=== PATIENT | male | born 1980 | race Caucasian/White ===

== ENCOUNTER → 2017-01-08 | Outpatient (CLI) | payer BC | LOC: MW.CHFP 10:52 | PROVIDERS: ATTEND Nurse Practitioner Family | DX: M10.9 Gout, unspecified (principal) | CPT/HCPCS: 36415; 84550 ==

== ENCOUNTER 2017-05-29 21:09 | Emergency (ER) | payer BC ==
[2017-05-29] MEDS ORDERED: Sodium Chloride 0.9% 2.5 ML Syringe FLUSH PRN (21:25)
[2017-05-29] MEDS ORDERED: Sodium Chloride 0.9% 10 ML Syringe FLUSH PRN (21:25)
[2017-05-29] MEDS ORDERED: Sodium Chloride 0.9% 1,000 ML IV ONE ×2 (21:25→22:54)
[2017-05-29] MEDS ORDERED: Ketorolac 30 MG/ML SDV IVPUSH ONE (21:25)
[2017-05-29] MEDS ORDERED: Acetaminophen 500 MG Tab PO ONE (21:26)
--- NOTE | 2017-05-29 21:29 | EDM.PDOC ---
ED HPI GENERAL MEDICAL PROBLEM - General Stated Complaint: DIZZY/POSSIBLE VIRUS Time Seen by Provider: 05/29/17 21:18 - History of Present Illness INITIAL COMMENTS - FREE TEXT/NARRATIVE: HISTORY AND PHYSICAL: History of present illness: The patient is a 37-year-old male who presents with a several day history of subjective fevers and chills and watery stools up to 15 times a day after he eats anything. He's been trying to hydrate and keep up that he feels that he is dehydrated. He is dizzy and lightheaded but he has not passed out or blacked out. He has generalized malaise and weakness but no focal weakness in any of his extremities. He has no sore throat runny nose or cough no chest pain or shortness of breath. He has not been vomiting and has no abdominal pain. Patient has not had any recent travel to exotic places and no new foods. Patient denies any GI history and his only abdominal surgery is of gastric bypass. Patient has tried [id number]-fes-[id number] medications for diarrhea 1 time as well as meds for his fever. Again it was a subjective fever. The patient follows in our clinic and has a history of hypertension and hypercholesterolemia. Review of systems: As per history of present illness and below otherwise all systems reviewed and negative. Past medical history: As per history of present illness and as reviewed below otherwise noncontributory. Surgical history: As per history of present illness and as reviewed below otherwise noncontributory. Social history: No reported history of drug or alcohol abuse. Family history: As per history of present illness and as reviewed below otherwise noncontributory. Physical exam: Gen.: Well-developed mildly overweight male who is nontoxic flushed in the face and religion orally is 101.6 HEENT: Atraumatic, normocephalic, pupils reactive, negative for conjunctival pallor or scleral icterus, mucous membranes tacky, throat clear, neck supple, nontender, trachea midline. There is no cervical adenopathy or nuchal rigidity Lungs: Clear to auscultation, breath sounds equal bilaterally, chest nontender. Heart: S1S2, regular rate and rhythm no overt murmurs Abdomen: Soft, nondistended, nontender. Negative for masses or hepatosplenomegaly. Negative for costovertebral tenderness. Pelvis: Stable nontender. Genitourinary: Deferred. Rectal: Deferred. Extremities: Atraumatic, negative for cords or calf pain. Neurovascular unremarkable. Neuro: Awake, alert, oriented. Cranial nerves II through XII grossly unremarkable. Cerebellum grossly unremarkable. Motor and sensory unremarkable throughout. Exam nonfocal. Skin: Warm to touch but no rashes or lesions are seen and turgor is normal Diagnostics: EKG orthostatic vitals CBC CMP lipase lactic acid stool for culture and WBCs Therapeutics: IV fluids Toradol Tylenol Levaquin Please note that the patient's orthostatic vitals were positive as a systolic blood pressure went from 138-105 from supine to standing and his heart rate went from 81-104 supine to standing and he was symptomatic. Patient is aware of all lab testing results and the stool studies which revealed Campylobacter. We will go ahead and treat with Levaquin here and send him home with Levaquin prescription as well as Bentyl. I've advised him on the need to call and follow-up in the clinic before the weekend and reasons to return to the ED. I've advised him to drink electrolyte solutions as well as water and eat a bland diet. He can use [id number] Tylenol and ibuprofen for fevers. Patient was up and ambulated and feels much improved and would like to try to go home. Impression: Bacterial diarrhea, Campylobacter with clinical dehydration and Orthostasis improving Definitive disposition and diagnosis as appropriate pending reevaluation and review of above. - Related Data Allergies Allergy/AdvReac Type Severity Reaction Status Date / Time No Known Allergies Allergy Verified 05/29/17 21:26 Home Meds: Home Meds Sertraline [Zoloft] 100 mg PO DAILY 02/22/14 [History] Lisinopril 40 mg PO DAILY 05/29/17 [History] atorvaSTATin Calcium [Atorvastatin Calcium] 40 mg PO BEDTIME 05/29/17 [History] Social & Family History - Tobacco Use Second Hand Smoke Exposure: Yes - Alcohol Use Days Per Week of Alcohol Use: 0 - Recreational Drug Use Recreational Drug Use: No ED ROS GENERAL - Review of Systems Review Of Systems: ROS reveals no pertinent complaints other than HPI. ED EXAM, GENERAL - Physical Exam Exam: See Below (See dictation) Course - Vital Signs Last Recorded V/S: Last Vital Signs Temp 38.3 C H 05/29/17 23:15 Pulse 72 05/29/17 23:15 Resp 18 05/29/17 23:15 BP 134/64 05/29/17 23:15 Pulse Ox 95 05/29/17 23:15 Orthostatic Blood Pressure [ 105/53 Standing] Orthostatic Blood Pressure [ 129/61 Sitting] Orthostatic Blood Pressure [ 138/68 Supine] - Orders/Labs/Meds Orders: Active Orders 24 hr Category Date Time Status Cardiac Monitoring [RC] . DIRECTED Care 05/29/17 21:25 Active EKG Documentation Completion [RC] STAT Care 05/29/17 21:19 Active Orthostatic Vital Signs [RC] ASDIRECTED Care 05/29/17 21:18 Active Pulse Oximetry [RC] ASDIRECTED Care 05/29/17 21:25 Active CULTURE STOOL + CAMPY+SHIGATOX [] Stat Lab 05/29/17 22:35 Results Levofloxacin/Dextrose 5%-Water [Levaquin in D5W 500 MG/ Med 05/29/17 23:56 Ordered 100 ML] 500 mg Premix Bag 1 bag IV ONETIME Sodium Chloride 0.9% [Saline Flush] Med 05/29/17 21:25 Active 10 ml FLUSH ASDIRECTED PRN Sodium Chloride 0.9% [Saline Flush] Med 05/29/17 21:25 Active 2.5 ml FLUSH ASDIRECTED PRN Saline Lock Insert [OM.PC] Stat Oth 05/29/17 21:25 Ordered Medication Orders Levofloxacin/Dextrose 500 mg/ (Premix) 100 mls @ 100 mls/hr IV ONETIME ONE Stop: 05/30/17 00:55 Sodium Chloride (Saline Flush) 10 ml FLUSH ASDIRECTED PRN PRN Reason: Keep Vein Open Last Admin: 05/29/17 21:50 Dose: 10 ml Sodium Chloride (Saline Flush) 2.5 ml FLUSH ASDIRECTED PRN PRN Reason: Keep Vein Open Last Admin: 05/29/17 21:52 Dose: 2.5 ml Labs: Laboratory Tests 05/29/17 05/29/17 05/29/17 Range/Units 21:50 21:50 21:50 WBC 8.00 (4.0-11.0) K/uL RBC 5.19 (4.50-5.90) M/uL Hgb 14.8 (13.0-17.0) g/dL Hct 43.2 (38.0-50.0) % MCV 83.2 (80.0-98.0) fL MCH 28.5 (27.0-32.0) pg MCHC 34.3 (31.0-37.0) g/dL RDW Std Deviation 40.0 (28.0-62.0) fl RDW Coeff of Teresa 13 (11.0-15.0) % Plt Count 150 (150-400) K/uL MPV 9.70 (7.40-12.00) fL Neut % (Auto) 78.1 (48.0-80.0) % Lymph % (Auto) 13.5 L (16.0-40.0) % Wilkinson % (Auto) 8.1 (0.0-15.0) % Eos % (Auto) 0.0 (0.0-7.0) % Baso % (Auto) 0.3 (0.0-1.5) % Neut # (Auto) 6.3 H (1.4-5.7) K/uL Lymph # (Auto) 1.1 (0.6-2.4) K/uL Wilkinson # (Auto) 0.7 (0.0-0.8) K/uL Eos # (Auto) 0.0 (0.0-0.7) K/uL Baso # (Auto) 0.0 (0.0-0.1) K/uL Nucleated RBC % 0.0 /100WBC Nucleated RBCs # 0 K/uL Lactate 1.2 (0.20-2.00) mmol/L Sodium 136 (136-146) mmol/L Potassium 3.2 L (3.5-5.1) mmol/L Chloride 101 (98-110) mmol/L Carbon Dioxide 23 (21-31) mmol/L BUN 13 (6.0-23.0) mg/dL Creatinine 1.1 (0.6-1.5) mg/dL Est Cr Clr Drug Dosing 103.91 mL/min Estimated GFR (MDRD) > 60.0 ml/min Glucose 118 H (60-110) mg/dL Calcium 8.9 (8.8-10.8) mg/dL Total Bilirubin 1.2 (0.1-1.5) mg/dL AST 14 (5-40) IU/L ALT 12 (8-54) IU/L Alkaline Phosphatase 81 (40-150) Total Protein 6.8 (6.0-8.0) g/dL Albumin 3.9 (3.5-5.0) g/dL Globulin 2.9 (2.0-3.5) g/dL Albumin/Globulin Ratio 1.3 (1.3-2.8) Lipase 16 (7-80) U/L Urine Color Urine Appearance Urine pH (5.0-8.0) Ur Specific [place] (1.001-1.035) Urine Protein (NEGATIVE) mg/dL Urine Glucose (UA) (NEGATIVE) mg/dL Urine Ketones (NEGATIVE) mg/dL Urine Occult Blood (NEGATIVE) Urine Nitrite (NEGATIVE) Urine Bilirubin (NEGATIVE) Urine Urobilinogen (<2.0) EU/dL Ur Leukocyte Esterase (NEGATIVE) Urine RBC (0-2/HPF) Urine WBC (0-5/HPF) Ur Epithelial Cells (NONE-FEW) Urine Bacteria (NEGATIVE) 05/29/17 Range/Units 22:20 WBC (4.0-11.0) K/uL RBC (4.50-5.90) M/uL Hgb (13.0-17.0) g/dL Hct (38.0-50.0) % MCV (80.0-98.0) fL MCH (27.0-32.0) pg MCHC (31.0-37.0) g/dL RDW Std Deviation (28.0-62.0) fl RDW Coeff of Teresa (11.0-15.0) % Plt Count (150-400) K/uL MPV (7.40-12.00) fL Neut % (Auto) (48.0-80.0) % Lymph % (Auto) (16.0-40.0) % Wilkinson % (Auto) (0.0-15.0) % Eos % (Auto) (0.0-7.0) % Baso % (Auto) (0.0-1.5) % Neut # (Auto) (1.4-5.7) K/uL Lymph # (Auto) (0.6-2.4) K/uL Wilkinson # (Auto) (0.0-0.8) K/uL Eos # (Auto) (0.0-0.7) K/uL Baso # (Auto) (0.0-0.1) K/uL Nucleated RBC % /100WBC Nucleated RBCs # K/uL Lactate (0.20-2.00) mmol/L Sodium (136-146) mmol/L Potassium (3.5-5.1) mmol/L Chloride (98-110) mmol/L Carbon Dioxide (21-31) mmol/L BUN (6.0-23.0) mg/dL Creatinine (0.6-1.5) mg/dL Est Cr Clr Drug Dosing mL/min Estimated GFR (MDRD) ml/min Glucose (60-110) mg/dL Calcium (8.8-10.8) mg/dL Total Bilirubin (0.1-1.5) mg/dL AST (5-40) IU/L ALT (8-54) IU/L Alkaline Phosphatase (40-150) Total Protein (6.0-8.0) g/dL Albumin (3.5-5.0) g/dL Globulin (2.0-3.5) g/dL Albumin/Globulin Ratio (1.3-2.8) Lipase (7-80) U/L Urine Color YELLOW Urine Appearance CLEAR Urine pH 6.0 (5.0-8.0) Ur Specific [place] 1.020 (1.001-1.035) Urine Protein TRACE (NEGATIVE) mg/dL Urine Glucose (UA) NEGATIVE (NEGATIVE) mg/dL Urine Ketones NEGATIVE (NEGATIVE) mg/dL Urine Occult Blood TRACE-INTACT (NEGATIVE) Urine Nitrite NEGATIVE (NEGATIVE) Urine Bilirubin NEGATIVE (NEGATIVE) Urine Urobilinogen 0.2 (<2.0) EU/dL Ur Leukocyte Esterase NEGATIVE (NEGATIVE) Urine RBC 0-2 (0-2/HPF) Urine WBC 0-1 (0-5/HPF) Ur Epithelial Cells RARE (NONE-FEW) Urine Bacteria FEW (NEGATIVE) Meds: Medications Generic Name Dose Route Start Last Admin Trade Name Freq PRN Reason Stop Dose Admin Levofloxacin/Dextrose 500 mg/ 100 mls @ 100 mls/hr 05/29/17 23:56 Premix IV 05/30/17 00:55 ONETIME ONE Sodium Chloride 10 ml 05/29/17 21:25 05/29/17 21:50 Saline Flush FLUSH 10 ml ASDIRECTED PRN Administration Keep Vein Open Sodium Chloride 2.5 ml 05/29/17 21:25 05/29/17 21:52 Saline Flush FLUSH 2.5 ml ASDIRECTED PRN Administration Keep Vein Open Discontinued Medications Generic Name Dose Route Start Last Admin Trade Name Francesca PRN Reason Stop Dose Admin Acetaminophen 1,000 mg 05/29/17 21:26 05/29/17 22:01 Tylenol Extra Strength PO 05/29/17 21:27 1,000 mg ONETIME ONE Administration Dicyclomine HCl 20 mg 05/29/17 23:56 Bentyl PO 05/29/17 23:57 ONETIME ONE Sodium Chloride 1,000 mls @ 999 mls/hr 05/29/17 21:25 05/29/17 21:54 Normal Saline IV 05/29/17 22:25 999 mls/hr STAT ONE Administration Sodium Chloride 1,000 mls @ 999 mls/hr 05/29/17 22:54 05/29/17 22:55 Normal Saline IV 05/29/17 23:54 999 mls/hr STAT ONE Administration Ketorolac Tromethamine 30 mg 05/29/17 21:25 05/29/17 22:03 Toradol IVPUSH 05/29/17 21:26 30 mg ONETIME ONE Administration Departure - Departure Time of Disposition: 00:06 Disposition: Home, Self-Care 01 Condition: Good, Fair Clinical Impression: Campylobacter diarrhea, Orthostasis - Discharge Information Additional Instructions: The following information is given to patients seen in the emergency department who are being discharged to home. This information is to outline your options for follow-up care. We provide all patients seen in our emergency department with a follow-up referral. The need for follow-up, as well as the timing and circumstances, are variable depending upon the specifics of your emergency department visit. If you don't have a primary care physician on staff, we will provide you with a referral. We always advise you to contact your personal physician following an emergency department visit to inform them of the circumstance of the visit and for follow-up with them and/or the need for any referrals to a consulting specialist. The emergency department will also refer you to a specialist when appropriate. This referral assures that you have the opportunity for followup care with a specialist. All of these measure are taken in an effort to provide you with optimal care, which includes your followup. Under all circumstances we always encourage you to contact your private physician who remains a resource for coordinating your care. When calling for followup care, please make the office aware that this follow-up is from your recent emergency room visit. If for any reason you are refused follow-up, please contact the [facility] emergency department at and ask to speak to the emergency department charge nurse. [facility] Primary care- Internal Medicine and Family [address] [address] Push hydration and electrolyte solutions. Eat bland diet and please call the clinic and schedule a follow-up before the weekend as we discussed. Take antibiotics as directed until they're finished and please use the Bentyl as needed for cramping in any pain. His [id number] Tylenol/ibuprofen for fevers. Return to ER as needed and as discussed. - My Orders Last 24 Hours: My Active Orders 05/29/17 21:18 Orthostatic Vital Signs [RC] ASDIRECTED 05/29/17 21:19 EKG Documentation Completion [RC] STAT 05/29/17 21:25 Cardiac Monitoring [RC] . DIRECTED Pulse Oximetry [RC] ASDIRECTED Sodium Chloride 0.9% [Saline Flush] 10 ml FLUSH ASDIRECTED PRN Sodium Chloride 0.9% [Saline Flush] 2.5 ml FLUSH ASDIRECTED PRN Saline Lock Insert [OM.PC] Stat 05/29/17 22:35 CULTURE STOOL + CAMPY+SHIGATOX [RM] Stat 05/29/17 23:56 Levofloxacin/Dextrose 5%-Water [Levaquin in D5W 500 MG/100 ML] 500 mg Premix Bag 1 bag IV ONETIME - Assessment/Plan Last 24 Hours: My Active Orders 05/29/17 21:18 Orthostatic Vital Signs [RC] ASDIRECTED 05/29/17 21:19 EKG Documentation Completion [RC] STAT 05/29/17 21:25 Cardiac Monitoring [RC] . DIRECTED Pulse Oximetry [RC] ASDIRECTED Sodium Chloride 0.9% [Saline Flush] 10 ml FLUSH ASDIRECTED PRN Sodium Chloride 0.9% [Saline Flush] 2.5 ml FLUSH ASDIRECTED PRN Saline Lock Insert [OM.PC] Stat 05/29/17 22:35 CULTURE STOOL + CAMPY+SHIGATOX [RM] Stat 05/29/17 23:56 Levofloxacin/Dextrose 5%-Water [Levaquin in D5W 500 MG/100 ML] 500 mg Premix Bag 1 bag IV ONETIME
[2017-05-29 22:32] LABS: CHLORIDE,CL 101 mmol/L (98-110); SODIUM,NA 136 mmol/L (136-146)
[2017-05-29] MEDS ORDERED: Dicyclomine 10 MG Cap PO ONE (23:56)
[2017-05-29] MEDS ORDERED: Levofloxacin/Dextrose 5%-Water 500 MG in Premix Bag 1 BAG IV ONE (23:56)
[2017-05-30 01:30] VITALS: BP 121/66
== END 2017-05-30 01:21 | disposition home or self-care (01) ==
LOC: MW.ED 21:09
DX: A04.5 Campylobacter enteritis (principal); I95.1 Orthostatic hypotension; Z79.899 Other long term (current) drug therapy
CPT/HCPCS: 36415; 80053; 81001; 83605; 83630; 83690; 85025; 87046; 87899; 93005; 96361; 96365; 96375; 99284; A9270; J1885; J1956; J7040

== ENCOUNTER 2017-10-20 12:10 | Emergency (ER) | payer BC ==
[2017-10-20] MEDS ORDERED: Ondansetron 4 MG/2 ML SDV IVPUSH ONE (12:35)
[2017-10-20] MEDS ORDERED: Metoclopramide 10 MG/2 ML SDV IV ONE (12:35)
[2017-10-20] MEDS ORDERED: diphenhydrAMINE 50 MG/ML SDV IVPUSH ONE (12:35)
[2017-10-20] MEDS ORDERED: Sodium Chloride 0.9% 1,000 ML IV ONE (12:35)
[2017-10-20] MEDS ORDERED: Ketorolac 30 MG/ML SDV IVPUSH ONE (12:35)
--- NOTE | 2017-10-20 12:38 | EDM.PDOC ---
ED HPI GENERAL MEDICAL PROBLEM - General Chief Complaint: Headache Stated Complaint: HEADACHE Time Seen by Provider: 10/20/17 12:26 - History of Present Illness INITIAL COMMENTS - FREE TEXT/NARRATIVE: HISTORY AND PHYSICAL: History of present illness: Patient 37-year-old white male history migraine headaches presents with concern of migraine has been over last 2-3 days with associated nausea denies vomiting. Review of systems: As per history of present illness and below otherwise all systems reviewed and negative. Past medical history: As per history of present illness and as reviewed below otherwise noncontributory. Surgical history: As per history of present illness and as reviewed below otherwise noncontributory. Social history: No reported history of drug or alcohol abuse. Family history: As per history of present illness and as reviewed below otherwise noncontributory. Physical exam: HEENT: Atraumatic, normocephalic, pupils reactive, negative for conjunctival pallor or scleral icterus, mucous membranes moist, throat clear, neck supple, nontender, trachea midline. Lungs: Clear to auscultation, breath sounds equal bilaterally, chest nontender. Heart: S1S2, regular, negative for clicks, rubs, or JVD. Abdomen: Soft, nondistended, nontender. Negative for masses or hepatosplenomegaly. Negative for costovertebral tenderness. Pelvis: Stable nontender. Genitourinary: Deferred. Rectal: Deferred. Extremities: Atraumatic, negative for cords or calf pain. Neurovascular unremarkable. Neuro: Awake, alert, oriented. Cranial nerves II through XII unremarkable. Cerebellum unremarkable. Motor and sensory unremarkable throughout. Exam nonfocal. Diagnostics: CT brain Therapeutics: Normal saline 1 L bolus Toradol 30 mg IV Zofran 4 mg IV Reglan 10 mg IV Benadryl 50 mg IV Impression: #1 migraine headache Definitive disposition and diagnosis as appropriate pending reevaluation and review of above. Headache Pain Score (Numeric/FACES): 6 - Related Data Allergies Allergy/AdvReac Type Severity Reaction Status Date / Time No Known Allergies Allergy Verified 05/29/17 21:26 Home Meds: Home Meds Sertraline [Zoloft] 50 mg PO DAILY 02/22/14 [History] Past Medical History Cardiovascular History: Reports: High Cholesterol, Hypertension, [place] Respiratory History: Reports: None Gastrointestinal History: Reports: None Genitourinary History: Reports: None Musculoskeletal History: Reports: None Neurological History: Reports: None Psychiatric History: Reports: Anxiety Endocrine/Metabolic History: Reports: None Hematologic History: Reports: None Immunologic History: Reports: None Oncologic (Cancer) History: Reports: None Dermatologic History: Reports: None - Infectious Disease History Infectious Disease History: Reports: None - Past Surgical History Head Surgeries/Procedures: Reports: None Cardiovascular Surgical History: Reports: None GI Surgical History: Reports: Bariatric Procedure Male Surgical History: Reports: None Social & Family History - Family History Family Medical History: Noncontributory - Tobacco Use Smoking Status *Q: Never Smoker Second Hand Smoke Exposure: No - Caffeine Use Caffeine Use: Reports: None - Alcohol Use Days Per Week of Alcohol Use: 0 - Recreational Drug Use Recreational Drug Use: No ED ROS GENERAL - Review of Systems Review Of Systems: ROS reveals no pertinent complaints other than HPI. ED EXAM, GENERAL - Physical Exam Exam: See Below (See dictation) Course - Vital Signs Last Recorded V/S: Last Vital Signs Temp 37.1 C 10/20/17 13:21 Pulse 56 L 10/20/17 13:21 Resp 18 10/20/17 13:21 BP 154/96 H 10/20/17 13:21 Pulse Ox 96 10/20/17 13:21 - Orders/Labs/Meds Orders: Active Orders 24 hr Category Date Time Status Head wo Cont [CT] Stat Exams 10/20/17 12:35 Taken Meds: Medications Discontinued Medications Generic Name Dose Route Start Last Admin Trade Name Freq PRN Reason Stop Dose Admin Diphenhydramine HCl 50 mg 10/20/17 12:35 10/20/17 13:16 Benadryl IVPUSH 10/20/17 12:36 50 mg ONETIME ONE Administration Sodium Chloride 1,000 mls @ 999 mls/hr 10/20/17 12:35 10/20/17 13:12 Normal Saline IV 10/20/17 13:35 999 mls/hr STAT ONE Administration Ketorolac Tromethamine 30 mg 10/20/17 12:35 10/20/17 13:15 Toradol IVPUSH 10/20/17 12:36 30 mg ONETIME ONE Administration Metoclopramide HCl 10 mg 10/20/17 12:35 10/20/17 13:18 Reglan IV 10/20/17 12:36 10 mg ONETIME ONE Administration Ondansetron HCl 4 mg 10/20/17 12:35 10/20/17 13:13 Zofran IVPUSH 10/20/17 12:36 4 mg ONETIME ONE Administration Departure - Departure Time of Disposition: 13:54 Disposition: Home, Self-Care 01 Condition: Good Clinical Impression: Migraine - Discharge Information Referrals: Alexa Blunt REFRIGERATION PERSON [Primary Care Provider] - Forms: ED Department Discharge Additional Instructions: The following information is given to patients seen in the emergency department who are being discharged to home. This information is to outline your options for follow-up care. We provide all patients seen in our emergency department with a follow-up referral. The need for follow-up, as well as the timing and circumstances, are variable depending upon the specifics of your emergency department visit. If you don't have a primary care physician on staff, we will provide you with a referral. We always advise you to contact your personal physician following an emergency department visit to inform them of the circumstance of the visit and for follow-up with them and/or the need for any referrals to a consulting specialist. The emergency department will also refer you to a specialist when appropriate. This referral assures that you have the opportunity for followup care with a specialist. All of these measure are taken in an effort to provide you with optimal care, which includes your followup. Under all circumstances we always encourage you to contact your private physician who remains a resource for coordinating your care. When calling for followup care, please make the office aware that this follow-up is from your recent emergency room visit. If for any reason you are refused follow-up, please contact the [facility] emergency department at and asked to speak to the emergency department charge nurse. [facility] Specialty Care - Neurology Professional Building [address] [place] [address], [address] [place] [address] Follow-up neurology clinic also schedule routine appointment return as needed as discussed - My Orders Last 24 Hours: My Active Orders 10/20/17 12:35 Head wo Cont [CT] Stat - Assessment/Plan Last 24 Hours: My Active Orders 10/20/17 12:35 Head wo Cont [CT] Stat
[2017-10-20 13:22] VITALS: BP 154/96
--- NOTE | 2017-10-22 19:34 | CT ---
EXAM DATE: 10/20/17 PATIENT'S AGE: 37 Patient: KENYATTA BARRIENTOS Facility: [place], [place] Site . Site : [id number] Study: CT Head [id number]/31/2017 12:58:51 PM Ordering Physician: Joshua Ochoa Final Report: INDICATION: Migraine. Headache for couple weeks. Technique: CT head without IV contrast. Comparison: 02/22/2014. Findings: Retention cyst or less likely of left anterior maxillary sinus stable. Minimal nodularity elsewhere in the left maxillary sinus less prominent. Mild to moderate fluid and mucosal thickening in the sphenoid, ethmoidal and to a greater extent frontal spine bilaterally. This is more prominent. Findings consistent with sinusitis. No acute intracranial hemorrhage, edema, or mass effect. Slight increased density in the deep scalp tissues posteriorly and superiorly. Remainder negative. Impression: 1. No acute intracranial disease. 2. Changes sinusitis mildly more prominent. Please note that all CT scans at this facility use dose modulation, iterative reconstruction, and/or weight-based dosing when appropriate to reduce radiation dose to as low as reasonably achievable. Dictated by Lei Fischer MD @ Oct 20 2017 1:13PM (Electronic Signature) Report Signed by Proxy. [facility]
== END 2017-10-20 14:35 | disposition home or self-care (01) ==
LOC: MW.ED 12:10
DX: G43.909 Migraine, unspecified, not intractable, without status migrainosus (principal); E78.00 Pure hypercholesterolemia, unspecified; I10 Essential (primary) hypertension; Z79.899 Other long term (current) drug therapy
CPT/HCPCS: 70450; 96361; 96374; 96375; 99284; J1200; J1885; J2405; J2765; J7040

== ENCOUNTER 2018-02-26 15:55 | Emergency (ER) | payer BC ==
[2018-02-26] MEDS ORDERED: Ketorolac 30 MG/ML SDV IVPUSH ONE (16:25)
--- NOTE | 2018-02-26 16:25 | EDM.PDOC ---
ED HPI GENERAL MEDICAL PROBLEM - General Chief Complaint: Flank Pain Stated Complaint: ABDOMINAL PAIN Time Seen by Provider: 02/26/18 16:19 Source of Information: Reports: Patient History Limitations: Reports: No Limitations - History of Present Illness INITIAL COMMENTS - FREE TEXT/NARRATIVE: HISTORY AND PHYSICAL: []37-year-old gentleman that started having abdominal pain last night History of Present Illness: []Admission is complaining more of a right testicular pain today When patient voided approximately one hour previous to coming to the emergency department he said it was nadia in color. Patient is complaining of pain being the worst he has ever experienced. Review of Systems: As per history of present illness and below otherwise all systems reviewed and negative. Past medical history: As per history of present illness and as reviewed below otherwise noncontributory. Surgical history: As per history of present illness and as reviewed below otherwise noncontributory. Social history: No reported history of drug or alcohol abuse. Family history: As per history of present illness and as reviewed below otherwise noncontributory. Physical exam: HEENT: Atraumatic, normocehpalic, pupils reactive, negative for conjunctival pallor or scleral icterus, mucous membranes moist, throat clear, neck supple, nontender, trachea midline. Lungs: Clear to auscultation, breath sounds equal bilaterally, chest non tender. Heart: S1S2, regular, negative for clicks, rubs, or JVD. Abdomen: Soft, nondistended, nontender. Negative for masses or hepatossplenmegaly. Negative for costovertebral tenderness. Pelvis: Stable nontender. Genitourinary: Unable to void on initial trial in ER. Torsion is noted upon examination right testicle and left are equal size. The tenderness is noted with patient up into the pelvis. Rectal: Deferred Extremities: Atraumatic, negative for cords or calf pain. Neurovascular unremarkable. Neuro: Awake, alert, oriented. Cranial nerves II through XII unremarkable. Cerebellum unremarkable. Motor and sensory unremarkable throughout. Exam nonfocal. Discussed this case with Dr. Laurent Gallagher. His recommendation is to send the home with pain medication Flomax and urinary strainer. If he has not passed the stone in the next week he is to call Dr. Gallagher's office and obtain appointment to be seen. Diagnostics: []CBC CMP UA ultrasound right scrotal Therapeutics: []Toradol IV Impression: []Mildly obstructing ureteral stone Plan: []Discharge to home Flomax 0.4 mg daily Hydrocodone/APAP D when necessary for pain Follow up with Dr. Gallagher. [facility] [address] [place] [id number] Definitive disposition and diagnosis as appropriate pending reevaluation and review of above. Onset: Sudden Duration: Day(s): (1), Getting Worse Location: Reports: Generalized (Right scrotal/) Severity: Severe Improves with: Reports: None Worsens with: Reports: None Right Flank Pain Score (Numeric/FACES): 10 Right Groin Pain Score (Numeric/FACES): 10 - Related Data Allergies Allergy/AdvReac Type Severity Reaction Status Date / Time No Known Allergies Allergy Verified 02/26/18 16:14 Home Meds: Home Meds Sertraline [Zoloft] 50 mg PO DAILY 02/22/14 [History] Lisinopril 40 mg PO DAILY 02/26/18 [History] Tamsulosin HCl [Flomax] 0.4 mg PO DAILY #30 cap.er.24h 02/26/18 [Rx] Past Medical History HEENT History: Reports: None Cardiovascular History: Reports: High Cholesterol, Hypertension, [place] Respiratory History: Reports: None Gastrointestinal History: Reports: None Genitourinary History: Reports: None Musculoskeletal History: Reports: None Neurological History: Reports: None Psychiatric History: Reports: Anxiety Endocrine/Metabolic History: Reports: None Hematologic History: Reports: None Immunologic History: Reports: None Oncologic (Cancer) History: Reports: None Dermatologic History: Reports: None - Infectious Disease History Infectious Disease History: Reports: None - Past Surgical History Head Surgeries/Procedures: Reports: None Cardiovascular Surgical History: Reports: None GI Surgical History: Reports: Bariatric Procedure Male Surgical History: Reports: None Social & Family History - Family History Family Medical History: Noncontributory - Tobacco Use Smoking Status *Q: Never Smoker Second Hand Smoke Exposure: No - Caffeine Use Caffeine Use: Reports: None - Recreational Drug Use Recreational Drug Use: No ED ROS GENERAL - Review of Systems Review Of Systems: ROS reveals no pertinent complaints other than HPI. ED EXAM, RENAL/ - Physical Exam Exam: See Below (see dictation) Course - Vital Signs Last Recorded V/S: Last Vital Signs Temp 37.1 C 02/26/18 18:41 Pulse 72 02/26/18 18:41 Resp 20 02/26/18 18:41 BP 144/56 H 02/26/18 18:41 Pulse Ox 97 02/26/18 18:41 - Orders/Labs/Meds Orders: Active Orders 24 hr Category Date Time Status Abdomen Pelvis wo Cont [CT] Stat Exams 02/26/18 18:39 Taken Scrotal Duplex Ltd [US] Routine Exams 02/26/18 16:32 Taken Testicular US [Scrotum and Contents] [US] Stat Exams 02/26/18 16:29 Taken UA W/MICROSCOPIC [URIN] Stat Lab 02/26/18 16:32 Ordered Sodium Chloride 0.9% [Saline Flush] Med 02/26/18 16:31 Active 10 ml FLUSH ASDIRECTED PRN Sodium Chloride 0.9% [Saline Flush] Med 02/26/18 16:31 Active 2.5 ml FLUSH ASDIRECTED PRN Saline Lock Insert [OM.PC] Stat Oth 02/26/18 16:31 Ordered Medication Orders Sodium Chloride (Saline Flush) 10 ml FLUSH ASDIRECTED PRN PRN Reason: Keep Vein Open Last Admin: 02/26/18 16:46 Dose: 10 ml Sodium Chloride (Saline Flush) 2.5 ml FLUSH ASDIRECTED PRN PRN Reason: Keep Vein Open Last Admin: 02/26/18 16:46 Dose: 2.5 ml Labs: Laboratory Tests 02/26/18 02/26/18 02/26/18 Range/Units 16:25 16:25 16:32 WBC 9.47 (4.0-11.0) K/uL RBC 5.15 (4.50-5.90) M/uL Hgb 15.1 (13.0-17.0) g/dL Hct 43.2 (38.0-50.0) % MCV 83.9 (80.0-98.0) fL MCH 29.3 (27.0-32.0) pg MCHC 35.0 (31.0-37.0) g/dL RDW Std Deviation 38.1 (28.0-62.0) fl RDW Coeff of Teresa 13 (11.0-15.0) % Plt Count 238 (150-400) K/uL MPV 9.90 (7.40-12.00) fL Neut % (Auto) 51.8 (48.0-80.0) % Lymph % (Auto) 36.6 (16.0-40.0) % [place] % (Auto) 9.5 (0.0-15.0) % Eos % (Auto) 1.9 (0.0-7.0) % Baso % (Auto) 0.2 (0.0-1.5) % Neut # (Auto) 4.9 (1.4-5.7) K/uL Lymph # (Auto) 3.5 H (0.6-2.4) K/uL [place] # (Auto) 0.9 H (0.0-0.8) K/uL Eos # (Auto) 0.2 (0.0-0.7) K/uL Baso # (Auto) 0.0 (0.0-0.1) K/uL Nucleated RBC % 0.0 /100WBC Nucleated RBCs # 0 K/uL Sodium 144 (136-148) mmol/L Potassium 3.7 (3.5-5.1) mmol/L Chloride 107 (98-107) mmol/L Carbon Dioxide 23.8 (21.0-32.0) mmol/L BUN 18 (7.0-18.0) mg/dL Creatinine 1.3 (0.8-1.3) mg/dL Est Cr Clr Drug Dosing 87.92 mL/min Estimated GFR (MDRD) > 60.0 ml/min Glucose 94 (74-106) mg/dL Calcium 9.1 (8.5-10.1) mg/dL Total Bilirubin 0.6 (0.2-1.0) mg/dL AST 24 (15-37) IU/L ALT 27 (14-63) IU/L Alkaline Phosphatase 101 (46-116) U/L Total Protein 7.2 (6.4-8.2) g/dL Albumin 4.2 (3.4-5.0) g/dL Globulin 3.0 (2.0-3.5) g/dL Albumin/Globulin Ratio 1.4 (1.3-2.8) Urine Color YELLOW Urine Appearance SLT CLOUDY Urine pH 7.5 (5.0-8.0) Ur Specific [place] 1.020 (1.001-1.035) Urine Protein NEGATIVE (NEGATIVE) mg/dL Urine Glucose (UA) NEGATIVE (NEGATIVE) mg/dL Urine Ketones NEGATIVE (NEGATIVE) mg/dL Urine Occult Blood LARGE H (NEGATIVE) Urine Nitrite NEGATIVE (NEGATIVE) Urine Bilirubin NEGATIVE (NEGATIVE) Urine Urobilinogen 0.2 (<2.0) EU/dL Ur Leukocyte Esterase NEGATIVE (NEGATIVE) Urine RBC 50-60 (0-2/HPF) Urine WBC 0-1 (0-5/HPF) Ur Epithelial Cells RARE (NONE-FEW) Urine Bacteria RARE (NEGATIVE) Meds: Medications Generic Name Dose Route Start Last Admin Trade Name Freq PRN Reason Stop Dose Admin Sodium Chloride 10 ml 02/26/18 16:31 02/26/18 16:46 Saline Flush FLUSH 10 ml ASDIRECTED PRN Administration Keep Vein Open Sodium Chloride 2.5 ml 02/26/18 16:31 02/26/18 16:46 Saline Flush FLUSH 2.5 ml ASDIRECTED PRN Administration Keep Vein Open Discontinued Medications Generic Name Dose Route Start Last Admin Trade Name Freq PRN Reason Stop Dose Admin Ketorolac Tromethamine 30 mg 02/26/18 16:25 02/26/18 16:30 Toradol IVPUSH 02/26/18 16:26 30 mg ONETIME ONE Administration Departure - Departure Time of Disposition: 20:19 Disposition: Home, Self-Care 01 Condition: Good Clinical Impression: Renal stone - Discharge Information Prescriptions: Tamsulosin HCl [Flomax] 0.4 mg PO DAILY #30 cap.er.24h Instructions: Kidney Stones, [id number], Pain Medicine Instructions, Easy-to- Read Referrals: Alexa Blunt [employer] AND [employer] INSTRUCTOR [Primary Care Provider] - Forms: ED Department Discharge Additional Instructions: The following information is given to patients seen in the emergency department who are being discharged to home. This information is to outline your options for follow-up care. We provide all patients seen in our emergency department with a follow-up referral. The need for follow-up, as well as the timing and circumstances, are variable depending upon the specifics of your emergency department visit. If you don't have a primary care physician on staff, we will provide you with a referral. We always advise you to contact your personal physician following an emergency department visit to inform them of the circumstance of the visit and for follow-up with them and/or the need for any referrals to a consulting specialist. The emergency department will also refer you to a specialist when appropriate. This referral assures that you have the opportunity for followup care with a specialist. All of these measure are taken in an effort to provide you with optimal care, which includes your followup. Under all circumstances we always encourage you to contact your private physician who remains a resource for coordinating your care. When calling for followup care, please make the office aware that this follow-up is from your recent emergency room visit. If for any reason you are refused follow-up, please contact the [facility] emergency department at and asked to speak to the emergency department charge nurse. Strain all urine Pain medication of hydrocodone/APAP 5/325 one up to 4 times daily as needed for pain A work note off for the next 48 hours Flomax 0.4 mg daily at the same time If you have not past the stone within a week he will need to see Dr. Laurent Gallagher [facility] [address] [place] [address] Return to the emergency room as directed and discussed - My Orders Last 24 Hours: My Active Orders 02/26/18 16:29 Testicular US [Scrotum and Contents] [US] Stat 02/26/18 16:31 Sodium Chloride 0.9% [Saline Flush] 10 ml FLUSH ASDIRECTED PRN Sodium Chloride 0.9% [Saline Flush] 2.5 ml FLUSH ASDIRECTED PRN Saline Lock Insert [OM.PC] Stat 02/26/18 16:32 UA W/MICROSCOPIC [URIN] Stat 02/26/18 18:39 Abdomen Pelvis wo Cont [CT] Stat - Assessment/Plan Last 24 Hours: My Active Orders 02/26/18 16:29 Testicular US [Scrotum and Contents] [US] Stat 02/26/18 16:31 Sodium Chloride 0.9% [Saline Flush] 10 ml FLUSH ASDIRECTED PRN Sodium Chloride 0.9% [Saline Flush] 2.5 ml FLUSH ASDIRECTED PRN Saline Lock Insert [OM.PC] Stat 02/26/18 16:32 UA W/MICROSCOPIC [URIN] Stat 02/26/18 18:39 Abdomen Pelvis wo Cont [CT] Stat
[2018-02-26] MEDS ORDERED: Sodium Chloride 0.9% 10 ML Syringe FLUSH PRN (16:31)
[2018-02-26] MEDS ORDERED: Sodium Chloride 0.9% 2.5 ML Syringe FLUSH PRN (16:31)
[2018-02-26 16:59] LABS: CHLORIDE,CL 107 mmol/L (98-107); SODIUM,NA 144 mmol/L (136-148)
[2018-02-26 20:42] VITALS: BP 138/98
--- NOTE | 2018-02-27 13:58 | US ---
EXAM DATE: 02/26/18 PATIENT'S AGE: 37 Patient: KENYATTA BARRIENTOS Facility: [place], [place] Site . Site : 1980 Study: US Testicle [id number]/2018 4:50:27 PM Ordering Physician: Doctor Nur Final Report: HISTORY: Right testicular pain. FINDINGS: Multiple grayscale static images from a bilateral testicular ultrasound were evaluated. Color and spectral Doppler was used. The right testicle measures 4.2 x 3.5 x 2.4 cm. The echotexture is homogeneous. Normal arterial blood flow is present. The right epididymis is unremarkable. There is small amount of fluid seen in the right hemiscrotum. The left testicle measures 4.2 x 3.3 x 2.5 cm. The echotexture is homogeneous. There is normal arterial blood flow. The left epididymis is normal. There is a small left-sided hydrocele. IMPRESSION: 1. No evidence of testicular mass or torsion. 2. Small bilateral hydroceles. 3. Both epididymi are normal. Dictated by Desiree Lane MD @ 02/26/2018 5:18:18 PM Dictated by: Desiree Lane MD @ 02/26/2018 17:18:34 (Electronic Signature) Report Signed by Proxy. JACQUES
--- NOTE | 2018-02-27 13:59 | US ---
EXAM DATE: 02/26/18 PATIENT'S AGE: 37 Patient: KENYATTA BARRIENTOS Facility: [place], [place] Site . Site : 1980 Study: US Testicle [id number]/9/2018 4:50:27 PM Ordering Physician: Doctor Nur Final Report: HISTORY: Right testicular pain. FINDINGS: Multiple grayscale static images from a bilateral testicular ultrasound were evaluated. Color and spectral Doppler was used. The right testicle measures 4.2 x 3.5 x 2.4 cm. The echotexture is homogeneous. Normal arterial blood flow is present. The right epididymis is unremarkable. There is small amount of fluid seen in the right hemiscrotum. The left testicle measures 4.2 x 3.3 x 2.5 cm. The echotexture is homogeneous. There is normal arterial blood flow. The left epididymis is normal. There is a small left-sided hydrocele. IMPRESSION: 1. No evidence of testicular mass or torsion. 2. Small bilateral hydroceles. 3. Both epididymi are normal. Dictated by Desiree Lane MD @ 02/26/2018 5:18:18 PM Dictated by: Desiree Lane MD @ 02/26/2018 17:18:34 (Electronic Signature) Report Signed by Proxy. JACQUES
--- NOTE | 2018-02-27 17:26 | CT ---
EXAM DATE: 02/26/18 PATIENT'S AGE: 37 Patient: KENYATTA BARRIENTOS Facility: [place], [place] Site . Site : 1980 Study: CT Abdomen/Pelvis W/O [id number]/9/2018 7:27:52 PM Ordering Physician: Doctor Nur Final Report: INDICATION: Right-sided flank pain for 1 day. History of gastric bypass. CT ABDOMEN AND PELVIS WITHOUT CONTRAST TECHNIQUE: Multidetector CT imaging was performed through the abdomen and pelvis without intravenous contrast administration. Coronal and sagittal reconstructions were generated. COMPARISON: None. FINDINGS: Lower chest: Minimal bibasilar lung atelectasis. Liver: Within normal limits. Gallbladder and bile ducts: No gallbladder wall thickening or calcified gallstones. No biliary dilation identified. Pancreas: Unremarkable. Spleen: Normal. Adrenals: No nodules or masses. Kidneys, ureters, and urinary bladder: 3 millimeter stone in the distal right ureter at the ureterovesical junction producing mild dilation of the right ureter and mild right hydronephrosis. No other urinary tract stones identified. No bladder mass or definite wall thickening. Gastrointestinal tract: Postoperative changes of Charlene-en-Y gastric bypass. Normal caliber bowel without wall thickening. The appendix is normal. Vascular structures: Normal for age. Peritoneum: No free air, abscess, or significant free fluid. Lymph nodes: No pathologically enlarged nodes identified. Reproductive organs: No pelvic masses. Bones: Normal for age. IMPRESSION: 1. 3 millimeter mildly obstructing stone in the distal right ureter at the UVJ producing mild right hydroureteronephrosis. 2. Status post Charlene-en-Y gastric bypass. SANDEEP VANEGAS MD [employer] Dictated by Mike Vanegas MD @ 02/26/2018 7:47:29 PM Dictated by: Mike Vanegas MD @ 02/26/2018 19:51:46 (Electronic Signature) Report Signed by Proxy. [facility]
== END 2018-02-26 20:35 | disposition home or self-care (01) ==
LOC: MW.ED 15:55
DX: N13.2 Hydronephrosis with renal and ureteral calculous obstruction (principal); I10 Essential (primary) hypertension; E78.00 Pure hypercholesterolemia, unspecified; F41.9 Anxiety disorder, unspecified; Z79.899 Other long term (current) drug therapy
CPT/HCPCS: 36415; 74176; 76870; 80053; 81001; 85025; 93976; 96374; 99284; J1885

== ENCOUNTER 2018-03-02 00:03 | Emergency (ER) | payer BC ==
[2018-03-02] MEDS ORDERED: Sodium Chloride 0.9% 1,000 ML IV ONE (00:20)
[2018-03-02] MEDS ORDERED: Ketorolac 30 MG/ML SDV IVPUSH ONE (00:20)
[2018-03-02] MEDS ORDERED: Sodium Chloride 0.9% 10 ML Syringe FLUSH PRN (00:20)
[2018-03-02] MEDS ORDERED: Ondansetron 4 MG/2 ML SDV IVPUSH ONE (00:20)
[2018-03-02] MEDS ORDERED: Sodium Chloride 0.9% 2.5 ML Syringe FLUSH PRN (00:20)
[2018-03-02] MEDS ORDERED: HYDROmorphone 2 MG/ML SDV IVPUSH ONE (00:20)
--- NOTE | 2018-03-02 00:24 | EDM.PDOC ---
ED HPI GENERAL MEDICAL PROBLEM - General Chief Complaint: Abdominal Pain Stated Complaint: KIDNEY STONE/NEEDS MEDICATION Time Seen by Provider: 03/02/18 00:16 - History of Present Illness INITIAL COMMENTS - FREE TEXT/NARRATIVE: HISTORY AND PHYSICAL: History of present illness: The patient is a 37-year-old male who was seen here in our emergency department on February 26 with right flank and testicular pain and was diagnosed with a 3 mm right UVJ stone with some mild hydronephrosis. He also had a scrotal ultrasound which revealed bilateral hydroceles which was a stable finding. Dr. Gallagher was contacted on that encounter and the patient has a follow-up appointment with him on Saturday at 1 PM. Patient says he has been compliant with his Flomax and pushing hydration and was using pain medication which "worked fpc" but he ran out of that and he is here for intractable pain. He points to his right flank and right side again and he has had no nausea vomiting diarrhea or fever. He says the pain is exactly the same as his prior stone pain but it is worse. He says he just needs to get through until he can see the urologist on Saturday. The patient said he had a completely normal day today and did normal activities and felt fine until he tried to go to bed when he suddenly felt the discomfort again. He ran out of his pain medications this evening. Review of systems: As per history of present illness and below otherwise all systems reviewed and negative. Past medical history: As per history of present illness and as reviewed below otherwise noncontributory. Surgical history: As per history of present illness and as reviewed below otherwise noncontributory. Social history: No reported history of drug or alcohol abuse. Family history: As per history of present illness and as reviewed below otherwise noncontributory. Physical exam: General: Well-developed well-nourished man who is nontoxic and looks uncomfortable in the room. Vital signs are noted by me HEENT: Atraumatic, normocephalic, negative for conjunctival pallor or scleral icterus, mucous membranes moist, throat clear, neck supple, nontender, trachea midline. Lungs: Clear to auscultation, breath sounds equal bilaterally, chest nontender. Heart: S1S2, regular, negative for clicks, rubs, or JVD. Abdomen: Soft, nondistended, nontender. On palpation I cannot reproduce the pain exactly and there is no rebound or guarding. Bowel sounds are hypoactive Negative for masses or hepatosplenomegaly. Negative for costovertebral tenderness. Pelvis: Stable nontender. Genitourinary: Deferred. Rectal: Deferred. Extremities: Atraumatic, negative for cords or calf pain. Neurovascular unremarkable. Neuro: Awake, alert, oriented. Cranial nerves II through XII unremarkable. Cerebellum unremarkable. Motor and sensory unremarkable throughout. Exam nonfocal. Diagnostics: CBC CMP UA one view [employer]: IV fluids Zofran Toradol Dilaudid The patient is much improved and I will prescribe him Toradol and Percocet from [facility]. He does not want anything for nausea as he says he doesn't feel nauseated or vomiting except when the pain is there. He has Flomax and urine strainers and has his appointment at 1 PM on Saturday with urology which I encouraged him to keep. Impression: Right ureterolithiasis with persistent pain, improved Definitive disposition and diagnosis as appropriate pending reevaluation and review of above. Abdomen Pain Score (Numeric/FACES): 8 - Related Data Allergies Allergy/AdvReac Type Severity Reaction Status Date / Time No Known Allergies Allergy Verified 03/02/18 00:11 Home Meds: Home Meds Sertraline [Zoloft] 50 mg PO DAILY 02/22/14 [History] Lisinopril 40 mg PO DAILY 02/26/18 [History] Tamsulosin HCl [Flomax] 0.4 mg PO DAILY #30 cap.er.24h 02/26/18 [Rx] Past Medical History HEENT History: Reports: None Cardiovascular History: Reports: High Cholesterol, Hypertension, [place] Respiratory History: Reports: None Gastrointestinal History: Reports: None Genitourinary History: Reports: None Musculoskeletal History: Reports: None Neurological History: Reports: None Psychiatric History: Reports: Anxiety Endocrine/Metabolic History: Reports: None Hematologic History: Reports: None Immunologic History: Reports: None Oncologic (Cancer) History: Reports: None Dermatologic History: Reports: None - Infectious Disease History Infectious Disease History: Reports: None - Past Surgical History Head Surgeries/Procedures: Reports: None Cardiovascular Surgical History: Reports: None GI Surgical History: Reports: Bariatric Procedure Male Surgical History: Reports: None Social & Family History - Family History Family Medical History: Noncontributory - Caffeine Use Caffeine Use: Reports: None ED ROS GENERAL - Review of Systems Review Of Systems: ROS reveals no pertinent complaints other than HPI. ED EXAM, GENERAL - Physical Exam Exam: See Below (see Dictation) Course - Vital Signs Last Recorded V/S: Last Vital Signs Temp 37.1 C 03/02/18 00:11 Pulse 55 L 03/02/18 00:11 Resp 18 03/02/18 00:11 BP 175/89 H 03/02/18 00:11 Pulse Ox 98 03/02/18 00:11 - Orders/Labs/Meds Orders: Active Orders 24 hr Category Date Time Status Abdomen 1V Flat [CR] Stat Exams 03/02/18 00:20 Taken UA W/MICROSCOPIC [URIN] Stat Lab 03/02/18 00:50 Ordered Sodium Chloride 0.9% [Normal Saline] 1,000 ml Med 03/02/18 00:20 Active IV STAT Sodium Chloride 0.9% [Saline Flush] Med 03/02/18 00:20 Active 10 ml FLUSH ASDIRECTED PRN Sodium Chloride 0.9% [Saline Flush] Med 03/02/18 00:20 Active 2.5 ml FLUSH ASDIRECTED PRN Saline Lock Insert [OM.PC] Stat Oth 03/02/18 00:20 Ordered Medication Orders Sodium Chloride (Normal Saline) 1,000 mls @ 999 mls/hr IV STAT ONE Stop: 03/02/18 01:20 Last Admin: 03/02/18 00:32 Dose: 999 mls/hr Sodium Chloride (Saline Flush) 10 ml FLUSH ASDIRECTED PRN PRN Reason: Keep Vein Open Sodium Chloride (Saline Flush) 2.5 ml FLUSH ASDIRECTED PRN PRN Reason: Keep Vein Open Labs: Laboratory Tests 03/02/18 03/02/18 03/02/18 Range/Units 00:15 00:15 00:50 WBC 9.28 (4.0-11.0) K/uL RBC 4.67 (4.50-5.90) M/uL Hgb 13.8 (13.0-17.0) g/dL Hct 39.9 (38.0-50.0) % MCV 85.4 (80.0-98.0) fL MCH 29.6 (27.0-32.0) pg MCHC 34.6 (31.0-37.0) g/dL RDW Std Deviation 36.4 (28.0-62.0) fl RDW Coeff of Teresa 12 (11.0-15.0) % Plt Count 223 (150-400) K/uL MPV 10.30 (7.40-12.00) fL Neut % (Auto) 50.8 (48.0-80.0) % Lymph % (Auto) 33.5 (16.0-40.0) % [place] % (Auto) 12.5 (0.0-15.0) % Eos % (Auto) 2.8 (0.0-7.0) % Baso % (Auto) 0.4 (0.0-1.5) % Neut # (Auto) 4.7 (1.4-5.7) K/uL Lymph # (Auto) 3.1 H (0.6-2.4) K/uL [place] # (Auto) 1.2 H (0.0-0.8) K/uL Eos # (Auto) 0.3 (0.0-0.7) K/uL Baso # (Auto) 0.0 (0.0-0.1) K/uL Sodium 138 (136-148) mmol/L Potassium 3.8 (3.5-5.1) mmol/L Chloride 104 (98-107) mmol/L Carbon Dioxide 30.1 (21.0-32.0) mmol/L BUN 18 (7.0-18.0) mg/dL Creatinine 1.2 (0.8-1.3) mg/dL Est Cr Clr Drug Dosing 95.25 mL/min Estimated GFR (MDRD) > 60.0 ml/min Glucose 92 (74-106) mg/dL Calcium 8.9 (8.5-10.1) mg/dL Total Bilirubin 0.3 (0.2-1.0) mg/dL AST 21 (15-37) IU/L ALT 22 (14-63) IU/L Alkaline Phosphatase 73 (46-116) U/L Total Protein 7.3 (6.4-8.2) g/dL Albumin 3.6 (3.4-5.0) g/dL Globulin 3.7 H (2.0-3.5) g/dL Albumin/Globulin Ratio 1.0 L (1.3-2.8) Urine Color YELLOW Urine Appearance SLT CLOUDY Urine pH 6.0 (5.0-8.0) Ur Specific [place] 1.025 (1.001-1.035) Urine Protein TRACE (NEGATIVE) mg/dL Urine Glucose (UA) NEGATIVE (NEGATIVE) mg/dL Urine Ketones NEGATIVE (NEGATIVE) mg/dL Urine Occult Blood LARGE H (NEGATIVE) Urine Nitrite NEGATIVE (NEGATIVE) Urine Bilirubin NEGATIVE (NEGATIVE) Urine Urobilinogen 1.0 (<2.0) EU/dL Ur Leukocyte Esterase NEGATIVE (NEGATIVE) Urine RBC 30-40 (0-2/HPF) Urine WBC 2-4 (0-5/HPF) Ur Epithelial Cells OCCASIONAL (NONE-FEW) Urine Bacteria FEW (NEGATIVE) Meds: Medications Generic Name Dose Route Start Last Admin Trade Name Freq PRN Reason Stop Dose Admin Sodium Chloride 1,000 mls @ 999 mls/hr 03/02/18 00:20 03/02/18 00:32 Normal Saline IV 03/02/18 01:20 999 mls/hr STAT ONE Administration Sodium Chloride 10 ml 03/02/18 00:20 Saline Flush FLUSH ASDIRECTED PRN Keep Vein Open Sodium Chloride 2.5 ml 03/02/18 00:20 Saline Flush FLUSH ASDIRECTED PRN Keep Vein Open Discontinued Medications Generic Name Dose Route Start Last Admin Trade Name Freq PRN Reason Stop Dose Admin Hydromorphone HCl 1 mg 03/02/18 00:20 03/02/18 00:33 Dilaudid IVPUSH 03/02/18 00:21 1 mg ONETIME ONE Administration Ketorolac Tromethamine 30 mg 03/02/18 00:20 03/02/18 00:33 Toradol IVPUSH 03/02/18 00:21 30 mg ONETIME ONE Administration Ondansetron HCl 4 mg 03/02/18 00:20 03/02/18 00:33 Zofran IVPUSH 03/02/18 00:21 4 mg ONETIME ONE Administration Departure - Departure Time of Disposition: 01:19 Disposition: Home, Self-Care 01 Condition: Good Clinical Impression: Ureterolithiasis - Discharge Information Referrals: PCP,None [Primary Care Provider] - Forms: ED Department Discharge Additional Instructions: The following information is given to patients seen in the emergency department who are being discharged to home. This information is to outline your options for follow-up care. We provide all patients seen in our emergency department with a follow-up referral. The need for follow-up, as well as the timing and circumstances, are variable depending upon the specifics of your emergency department visit. If you don't have a primary care physician on staff, we will provide you with a referral. We always advise you to contact your personal physician following an emergency department visit to inform them of the circumstance of the visit and for follow-up with them and/or the need for any referrals to a consulting specialist. The emergency department will also refer you to a specialist when appropriate. This referral assures that you have the opportunity for followup care with a specialist. All of these measure are taken in an effort to provide you with optimal care, which includes your followup. Under all circumstances we always encourage you to contact your private physician who remains a resource for coordinating your care. When calling for followup care, please make the office aware that this follow-up is from your recent emergency room visit. If for any reason you are refused follow-up, please contact the [facility] emergency department at and ask to speak to the emergency department charge nurse. [facility] [address] [place] [id number] Please take Percocet and Toradol as needed for pain given to you from [facility]. Continue with her Flomax you have and push hydration, strain all urine looking for the small stone. Please keep your appointment on Saturday with Dr. Gallagher and return to ER as needed and as discussed - My Orders Last 24 Hours: My Active Orders 03/02/18 00:20 Abdomen 1V Flat [CR] Stat Sodium Chloride 0.9% [Normal Saline] 1,000 ml IV STAT Sodium Chloride 0.9% [Saline Flush] 10 ml FLUSH ASDIRECTED PRN Sodium Chloride 0.9% [Saline Flush] 2.5 ml FLUSH ASDIRECTED PRN Saline Lock Insert [OM.PC] Stat 03/02/18 00:50 UA W/MICROSCOPIC [URIN] Stat - Assessment/Plan Last 24 Hours: My Active Orders 03/02/18 00:20 Abdomen 1V Flat [CR] Stat Sodium Chloride 0.9% [Normal Saline] 1,000 ml IV STAT Sodium Chloride 0.9% [Saline Flush] 10 ml FLUSH ASDIRECTED PRN Sodium Chloride 0.9% [Saline Flush] 2.5 ml FLUSH ASDIRECTED PRN Saline Lock Insert [OM.PC] Stat 03/02/18 00:50 UA W/MICROSCOPIC [URIN] Stat
[2018-03-02 00:43] LABS: CHLORIDE,CL 104 mmol/L (98-107); SODIUM,NA 138 mmol/L (136-148)
[2018-03-02 01:43] VITALS: BP 154/77
--- NOTE | 2018-03-03 20:04 | CR ---
EXAM DATE: 03/02/18 PATIENT'S AGE: 37 Patient: KENYATTA BARRIENTOS Facility: [place], [place] Site . Site : [id number] Study: XRay Abdomen/Pelvis [id number]/[id number] 12:52:54 AM Ordering Physician: Ayush Ibarra Final Report: INDICATION: Kidney stone. COMPARISON: 12/27/2017 CT abdomen and pelvis. FINDINGS/IMPRESSION: The 3 millimeter stone previously seen in the distal right ureter on CT is not identified with complete certainty on the current radiographs, but is questionably still present and projected along the right margin of the lower sacrum. No other suspicious calcifications are evident. Abdominal postoperative changes are again seen. Bowel gas pattern is within normal limits. Dictated by Mike June MD @ 03/02/2018 1:19:14 AM Dictated by: Mike June MD @ 03/02/2018 01:20:12 (Electronic Signature) Report Signed by Proxy. JACQUES
== END 2018-03-02 01:42 | disposition home or self-care (01) ==
LOC: MW.ED 00:03
DX: N20.1 Calculus of ureter (principal); E78.00 Pure hypercholesterolemia, unspecified; I10 Essential (primary) hypertension; I25.2 Old myocardial infarction; Z79.899 Other long term (current) drug therapy
CPT/HCPCS: 36415; 74018; 80053; 81001; 85025; 96361; 96374; 96375; 99284; J1170; J1885; J2405; J7040

== ENCOUNTER 2021-09-20 20:00 | Emergency (ER) | payer BC ==
[2021-09-20] MEDS: Ondansetron 4 MG/2 ML SDV ONE ×2 (20:31→20:35)
[2021-09-20] MEDS: Ondansetron 4 MG/2 ML SDV IVPUSH ONE ×2 (20:35→20:36)
[2021-09-20 20:59] LABS: ACETAMINOPHEN <2.0 ug/mL; BLOOD UREA NITROGEN,BUN 12 mg/dL (7.0-18.0); CARBON DIOXIDE,CO2 24.1 mmol/L (21.0-32.0); CHLORIDE,CL 103 mmol/L (98-107); GLUCOSE RANDOM 133 mg/dL (74-106); POTASSIUM,K 3.4 mmol/L (3.5-5.1); SODIUM,NA 140 mmol/L (136-148)
[2021-09-20] MEDS ORDERED: Ondansetron 4 MG/2 ML SDV IVPUSH ONE (21:48)
[2021-09-20] MEDS ORDERED: Dextrose 5%-Lactated Ringers 1,000 ML IV SCH (22:00)
[2021-09-20] MEDS ORDERED: Promethazine 25 MG/ML SDV IM ONE (23:14)
[2021-09-21 00:23] VITALS: BP 142/87; PULSE 88
== END 2021-09-21 00:24 | disposition home or self-care (01) ==
LOC: MW.ED 20:00
DX: F10.129 Alcohol abuse with intoxication, unspecified (principal); I10 Essential (primary) hypertension; Z79.899 Other long term (current) drug therapy; Z20.822 Contact with and (suspected) exposure to COVID-19
CPT/HCPCS: 36415; 80053; 80143; 80179; 80305; 80307; 81003; 83735; 84443; 85025; 87635; 93005; 96372; 96374; 96376; 99284; J2405; J2550; J7121; U0002

== ENCOUNTER 2022-06-24 10:54 | Emergency (ER) | payer BC ==
[2022-06-24 11:03] VITALS: BP 141/69; PULSE 76
== END 2022-06-24 12:08 | disposition home or self-care (01) ==
LOC: MW.ED 10:54
DX: S62.336A Displaced fracture of neck of fifth metacarpal bone, right hand, initial encounter for closed fracture (principal); I10 Essential (primary) hypertension; I25.2 Old myocardial infarction; Z79.899 Other long term (current) drug therapy; Z86.16 Personal history of COVID-19; Y04.0XXA Assault by unarmed brawl or fight, initial encounter
CPT/HCPCS: 73130-26-RT; 73130-RT; 99283

== ENCOUNTER 2024-04-27 07:11 | Emergency (ER) | payer SELFPAY ==
[2024-04-27] MEDS: Ketorolac 30 MG/ML SDV IVPUSH ONE (07:44)
[2024-04-27] MEDS: Sodium Chloride 0.9% 2.5 ML Syringe FLUSH PRN (07:45)
[2024-04-27] MEDS: Sodium Chloride 0.9% 10 ML Syringe FLUSH PRN (07:45)
[2024-04-27] MEDS: Lidocaine 1% with EPINEPHrine 1:100,000 10 ML MDV INJECT ONE (07:49)
[2024-04-27 08:12] LABS: C-REACTIVE PROTEIN 0.16 mg/dL (<0.3); CALCIUM 8.4 mg/dL (8.5-10.1); CARBON DIOXIDE,CO2 29.9 mmol/L (21.0-32.0); CREATININE 1.3 mg/dL (0.8-1.3); EST CRCL DRUG DOSING (CG) 81.95 mL/min; POTASSIUM,K 3.8 mmol/L (3.5-5.1)
[2024-04-27 08:19] LABS: BASOPHILS ABSOLUTE AUTO 0.03 K/uL (0.00-0.20); BASOPHILS PERCENT AUTO 0.4 % (0.0-1.0); EOSINOPHILS ABSOLUTE AUTO 0.31 K/uL (0.00-0.45); EOSINOPHILS PERCENT AUTO 3.7 % (0.0-6.0); HEMATOCRIT 42.6 % (42.0-52.0); HEMOGLOBIN 13.8 g/dL (14.0-18.0); IMMATURE GRAN ABSOLUTE AUTO 0.08 K/uL (0.00-0.05); IMMATURE GRAN PERCENT AUTO 0.9 % (0.0-0.4); LYMPHOCYTES ABSOLUTE AUTO 1.39 K/uL (1.00-4.80); LYMPHOCYTES PERCENT AUTO 16.5 % (24.0-44.0); MEAN CORPUSCULAR HEMOGLOBIN 25.6 pg (28.0-32.0); MEAN CORPUSCULAR HGB CONC 32.4 g/dL (32.0-36.0); MEAN CORPUSCULAR VOLUME 78.9 fL (83.0-99.0); MONOCYTES ABSOLUTE AUTO 0.84 K/uL (0.00-0.80); NEUTROPHILS ABSOLUTE AUTO 5.79 K/uL (1.80-7.70); NEUTROPHILS PERCENT AUTO 68.5 % (41.0-71.0); PLATELET COUNT,PLT 213 K/uL (150-400); WHITE BLOOD CELL COUNT,WBC 8.44 K/uL (3.9-11.3)
[2024-04-27 10:06] LABS: COLOR,BODY FLUID YELLOW
[2024-04-27 10:07] LABS: MONONUCLEAR, BODY FLUID 17.8 %; POLYMORPHONUCLEAR, BODY FLUID 82.2 %; RBC,BODY FLUID < 3000 /uL; WBC BODY FLUID 3708 /uL
[2024-04-27 10:08] LABS: BODY FLUID TYPE SYN
[2024-04-27 10:45] VITALS: BP 147/108; PULSE 62
== END 2024-04-27 10:45 | disposition home or self-care (01) ==
LOC: MW.ED 07:11
DX: M10.9 Gout, unspecified (principal); I10 Essential (primary) hypertension; F17.210 Nicotine dependence, cigarettes, uncomplicated; Z79.899 Other long term (current) drug therapy
CPT/HCPCS: 20610; 36415; 73562; 80048; 85025; 85652; 86140; 87070; 87075; 87205; 89050; 89060; 93005; 93970; 96374; 99284; J1885; J3490

== ENCOUNTER 2024-12-05 11:26 | Emergency (ER) | payer SELFPAY ==
[2024-12-05] MEDS ORDERED: Nitroglycerin 0.4 MG Tab.SL SL PRN (11:31)
[2024-12-05 11:38] LABS: BASOPHILS ABSOLUTE AUTO 0.04 K/uL (0.00-0.20); BASOPHILS PERCENT AUTO 0.3 % (0.0-1.0); EOSINOPHILS ABSOLUTE AUTO 0.19 K/uL (0.00-0.45); EOSINOPHILS PERCENT AUTO 1.4 % (0.0-6.0); HEMATOCRIT 45.2 % (42.0-52.0); HEMOGLOBIN 15.5 g/dL (14.0-18.0); IMMATURE GRAN ABSOLUTE AUTO 0.04 K/uL (0.00-0.05); IMMATURE GRAN PERCENT AUTO 0.3 % (0.0-0.4); LYMPHOCYTES ABSOLUTE AUTO 1.12 K/uL (1.00-4.80); LYMPHOCYTES PERCENT AUTO 8.1 % (24.0-44.0); MEAN CORPUSCULAR HEMOGLOBIN 27.8 pg (28.0-32.0); MEAN CORPUSCULAR HGB CONC 34.3 g/dL (32.0-36.0); MEAN PLATELET VOLUME 9.3 fL (9.4-12.4); MONOCYTES PERCENT AUTO 7.9 % (0.0-8.0); NEUTROPHILS ABSOLUTE AUTO 11.41 K/uL (1.80-7.70); PLATELET COUNT,PLT 246 K/uL (150-400); RED BLOOD CELL COUNT 5.58 M/uL (4.52-5.90)
[2024-12-05] MEDS: Aspirin 81 MG Tab.Chew PO ONE (11:48)
[2024-12-05 11:51] LABS: INR 1.03 (0.86-1.11)
[2024-12-05 12:13] LABS: A/G RATIO 1.2 (0.9-1.6); ALBUMIN 4.3 g/dL (3.4-5.0); BILIRUBIN TOTAL 0.9 mg/dL (0.2-1.0); CALCIUM 9.1 mg/dL (8.5-10.1); CARBON DIOXIDE,CO2 28.1 mmol/L (21.0-32.0); CREATININE 1.2 mg/dL (0.8-1.3); EST CRCL DRUG DOSING (CG) 93.89 mL/min; POTASSIUM,K 4.3 mmol/L (3.5-5.1)
[2024-12-05] MEDS: Pantoprazole 40 MG in Sodium Chloride 0.9% 10 ML IVPUSH ONE (13:35)
[2024-12-05] MEDS: Ketorolac 30 MG/ML SDV IVPUSH ONE (13:35)
[2024-12-05 16:13] VITALS: BP 172/98; PULSE 65
== END 2024-12-05 16:13 | disposition home or self-care (01) ==
LOC: MW.ED 11:26
DX: I49.1 Atrial premature depolarization (principal); I16.0 Hypertensive urgency; I10 Essential (primary) hypertension; F17.290 Nicotine dependence, other tobacco product, uncomplicated; Z91.148 Patient's other noncompliance with medication regimen for other reason; Z79.899 Other long term (current) drug therapy; Z79.82 Long term (current) use of aspirin
CPT/HCPCS: 36415; 71045; 80053; 83690; 83735; 83880; 84484; 85025; 85610; 87428; 93005; 96374; 96375; 99285; A9270; J1100; J1885; J2470; 93010; 99283